=== PATIENT | male | born 1970 | race Hispanic/Latino ===

== ENCOUNTER 2022-01-29 18:37 | Emergency (ER) | payer SELFPAY ==
[~2022-01-29] VITALS: Ht 170.2 cm; Wt 86.2 kg
[2022-01-29] MEDS ORDERED: PIPERACILLIN/TAZOBACTAM 3.375 GM in SODIUM CHLORIDE 0.9% 50ML 50 ML IV SCH (18:45)
[2022-01-29] MEDS ORDERED: SODIUM CHLORIDE 0.9% 1000ML 1,000 ML IV STA (18:45)
[2022-01-29] MEDS ORDERED: ACETAMINOPHEN 325 MG TAB PO STA (18:45)
[2022-01-29] MEDS ORDERED: ONDANSETRON HCL INJ 2MG/ML 2ML 2 MG/ML VIAL IV STA (18:48)
[2022-01-29] MEDS ORDERED: ACETAMINOPHEN 325 MG TAB ONE (18:59)
[2022-01-29] MEDS ORDERED: PIPERACILLIN/TAZOBACTAM 3.375 GM VIAL ONE (18:59)
[2022-01-29 19:09] LABS: BASOPHILS # (AUTO) 0.1 (0.0-0.1); BASOPHILS % 0.4 % (0.0-1.0); HEMATOCRIT 42.1 % (38.2-49.6); HEMOGLOBIN 14.5 g/dL (14.0-18.0); LYMPHOCYTES # (AUTO) 1.5 (1.0-3.2); LYMPHOCYTES % 9.1 % (18.0-39.1); MEAN CORPUSCULAR HEMOGLOBIN 30.9 pg (28-32); MEAN CORPUSCULAR HGB CONC 34.4 g/dL (31-35); MEAN CORPUSCULAR VOLUME 89.8 fL (81-99); MONOCYTES # (AUTO) 1.1 (0.2-0.8); MONOCYTES % 6.6 % (4.4-11.3); NEUTROPHILS # (AUTO) 13.5 (2.1-6.9); NEUTROPHILS % 83.5 % (38.7-80.0); PLATELET COUNT 230 x10e3/uL (140-360); RED BLOOD COUNT 4.69 x10e6/uL (4.3-5.7); RED CELL DISTRIBUTION WIDTH 13.6 % (11.7-14.4)
[2022-01-29 19:24] LABS: ALBUMIN 3.6 g/dL (3.5-5.0); ALBUMIN/GLOBULIN RATIO 0.8 (0.8-2.0); ANION GAP 13.6 mmol/L (8-16); CALCIUM 9.4 mg/dL (8.4-10.2); CREATININE, SERUM 1.17 mg/dL (0.72-1.25); POTASSIUM 3.6 mmol/L (3.5-5.1)
[2022-01-29 19:29] LABS: CLARITY,URINE CLOUDY (CLEAR); COLOR,URINE AMBER (YELLOW); KETONES,URINE TRACE (NEGATIVE); LEUKOCYTE ESTERASE ,URINE NEGATIVE (NEGATIVE); NITRITE,URINE NEGATIVE (NEGATIVE); PROTEIN,URINE DIPSTICK 2+ (NEGATIVE); URINE UROBILINOGEN >=8 mg/dL (0.2 - 1)
[2022-01-29 19:30] LABS: CREATINE KINASE MB 0.2 ng/mL (0-5.0)
[2022-01-29 19:31] LABS: BACTERIA,URINE FEW /HPF; EPITHELIAL CELLS,URINE FEW /LPF; RBC,URINE >50 /HPF (0-5); WBC,URINE (MAN) 0-5 /HPF (0-5)
[2022-01-29 19:32] LABS: MUCUS,URINE MANY (RARE)
[2022-01-29] MEDS ORDERED: IOPAMIDOL 370 MG/ML 200 ML INFUS..BTL INJ ONE (20:07)
[2022-01-29] MEDS ORDERED: SODIUM CHLORIDE 0.9% 50ML 50 ML ONE (20:07)
[2022-01-29 22:03] VITALS: BP 126/84
[2022-01-29] MEDS ORDERED: AZITHROMYCIN250 MG PO (22:07)
[2022-02-01] MEDS ORDERED: CEFUROXIME250 MG PO (10:59)
[2022-02-01] MEDS ORDERED: AZITHROMYCIN500 MG PO (10:59)
[2022-02-01] MEDS ORDERED: Benzonatate PO (10:59)
== END 2022-01-29 22:14 | disposition home or self-care (01) ==
LOC: ER 18:42
DX: R50.9 Fever, unspecified (principal); A41.9 Sepsis, unspecified organism; J18.9 Pneumonia, unspecified organism; E11.65 Type 2 diabetes mellitus with hyperglycemia; R53.81 Other malaise; Z20.822 Contact with and (suspected) exposure to COVID-19
CPT/HCPCS: 36415; 71045; 71260; 80053; 81001; 82550; 82553; 83605; 84484; 85025; 87040; 93005; 99284; J2405; J2543; J7030; Q9967; U0002

== ENCOUNTER 2022-01-31 11:33 | Inpatient (IN) | payer SELFPAY ==
[~2022-01-31] VITALS: Ht 170.2 cm; Wt 82.1 kg
[~2022-01-31 11:33] MED LIST: AZITHROMYCIN250 MG PO
[2022-01-31] MEDS ORDERED: KETOROLAC TROMETHAMINE 30 MG/ML VIAL IV STA (12:25)
[2022-01-31] MEDS ORDERED: DEXAMETHASONE SOD PHOS 10 MG/1 ML VIAL IV ONE (12:30)
[2022-01-31] MEDS ORDERED: PROCHLORPERAZINE MALEATE TAB 10 MG TAB PO PRN (12:30)
[2022-01-31] MEDS ORDERED: DIPHENHYDRAMINE HCL 25 MG CAP PO ONE (12:30)
[2022-01-31] MEDS ORDERED: SODIUM CHLORIDE 0.9% 1000ML 1,000 ML IV ONE (12:30)
[2022-01-31] MEDS ORDERED: SODIUM CHLORIDE 0.9% 1000ML 1,000 ML ONE (12:41)
[2022-01-31 12:42] LABS: BASOPHILS % 0.6 % (0.0-1.0); EOSINOPHILS # (AUTO) 0.1 (0.0-0.4); EOSINOPHILS % 1.5 % (0.0-6.0); HEMATOCRIT 39.7 % (38.2-49.6); HEMOGLOBIN 13.6 g/dL (14.0-18.0); LYMPHOCYTES # (AUTO) 1.4 (1.0-3.2); LYMPHOCYTES % 19.6 % (18.0-39.1); MEAN CORPUSCULAR HEMOGLOBIN 30.5 pg (28-32); MEAN CORPUSCULAR HGB CONC 34.3 g/dL (31-35); MONOCYTES # (AUTO) 0.8 (0.2-0.8); MONOCYTES % 10.9 % (4.4-11.3); NEUTROPHILS # (AUTO) 4.8 (2.1-6.9); NEUTROPHILS % 66.6 % (38.7-80.0); PLATELET COUNT 204 x10e3/uL (140-360); RED BLOOD COUNT 4.46 x10e6/uL (4.3-5.7); RED CELL DISTRIBUTION WIDTH 13.5 % (11.7-14.4)
[2022-01-31 13:03] LABS: ALBUMIN 3.1 g/dL (3.5-5.0); ALBUMIN/GLOBULIN RATIO 0.7 (0.8-2.0); ANION GAP 11.5 mmol/L (8-16); CALCIUM 9.3 mg/dL (8.4-10.2); CREATININE, SERUM 1.04 mg/dL (0.72-1.25); POTASSIUM 3.5 mmol/L (3.5-5.1)
[2022-01-31] MEDS ORDERED: LEVOFLOXACIN 750MG/D5W 150ML 150 ML IV SCH (14:00)
[2022-01-31] MEDS ORDERED: SODIUM CHLORIDE FLUSH 10 ML SYR INJ PRN (15:00)
[2022-01-31] MEDS ORDERED: ONDANSETRON HCL INJ 2MG/ML 2ML 2 MG/ML VIAL IV PRN (15:00)
[2022-01-31 16:09] VITALS: BP 125/84
[2022-01-31 16:48] VITALS: BP 125/84
[2022-01-31] MEDS ORDERED: TYLENOL325 MG PO (16:50)
[2022-01-31 17:36] VITALS: BP 125/84
[2022-01-31 20:00] VITALS: BP 113/76
[2022-01-31 20:16] VITALS: BP 125/84
[2022-01-31] MEDS: BENZONATATE 100 MG CAP PO SCH (23:00)
[2022-01-31] MEDS ORDERED: ACETAMINOPHEN 325 MG TAB PO PRN (23:15)
[2022-01-31] MEDS ORDERED: DOCUSATE SODIUM 100 MG CAP PO PRN (23:15)
[2022-01-31] MEDS ORDERED: GUAIFENESIN/DEXTROMETHORPHAN LIQD 5 ML UDC NG PRN (23:15)
[2022-01-31] MEDS ORDERED: ACETAMIN/BUTALBITAL/CAFFEINE TAB PO PRN (23:15)
[2022-01-31 23:48] VITALS: BP 119/77
[2022-02-01 03:50] VITALS: BP 128/85
[2022-02-01 05:52] LABS: BASOPHILS % 0.2 % (0.0-1.0); HEMATOCRIT 40.6 % (38.2-49.6); HEMOGLOBIN 13.7 g/dL (14.0-18.0); LYMPHOCYTES % 15.9 % (18.0-39.1); MEAN CORPUSCULAR HGB CONC 33.7 g/dL (31-35); MONOCYTES # (AUTO) 0.6 (0.2-0.8); MONOCYTES % 10.1 % (4.4-11.3); NEUTROPHILS # (AUTO) 4.4 (2.1-6.9); NEUTROPHILS % 72.3 % (38.7-80.0); PLATELET COUNT 225 x10e3/uL (140-360); RED BLOOD COUNT 4.56 x10e6/uL (4.3-5.7); RED CELL DISTRIBUTION WIDTH 13.2 % (11.7-14.4)
[2022-02-01] MEDS ORDERED: FAMOTIDINE 20 MG TAB PO SCH (07:30)
[2022-02-01] MEDS: BENZONATATE 100 MG CAP PO SCH (08:26)
[2022-02-01 08:53] VITALS: BP 123/83
[2022-02-01 09:00] VITALS: BP 123/83
[2022-02-01] MEDS ORDERED: Benzonatate PO (10:59)
[2022-02-01] MEDS ORDERED: AZITHROMYCIN500 MG PO (10:59)
[2022-02-01] MEDS ORDERED: CEFUROXIME250 MG PO (10:59)
[2022-02-01 12:12] VITALS: BP 122/84
[2022-02-01] MEDS ORDERED: ENOXAPARIN SOD INJ 40 MG/0.4 ML SYR SC SCH (17:00)
== END 2022-02-01 12:15 | disposition home or self-care (01) | DRG 195 ==
LOC: ER 11:50 → ERHOLD 15:01 → MED/SURG3 16:10
PROVIDERS: ADMIT Internal Medicine; ATTEND Internal Medicine
DX: J18.9 Pneumonia, unspecified organism (principal); R51.9 Headache, unspecified; F17.200 Nicotine dependence, unspecified, uncomplicated; Z20.822 Contact with and (suspected) exposure to COVID-19
CPT/HCPCS: 36415; 70450; 71045; 80053; 82948; 85025; 87040; 94799; 99284; J1100; J1885; J7030; U0002